=== PATIENT | female | born 1980 | race Asian ===

== ENCOUNTER 2017-06-16 21:13 | Emergency (ER) | payer MEDICAID ==
[~2017-06-16] VITALS: Ht 162.6 cm; Wt 63.0 kg
[2017-06-16 21:21] VITALS: BP 128/84; Ht 162.6 cm; Wt 63.0 kg
== END 2017-06-16 22:13 | disposition home or self-care (01) ==
LOC: ED 21:13
DX: L50.0 Allergic urticaria (principal)

== ENCOUNTER 2017-06-25 15:53 | Emergency (ER) | payer MEDICAID ==
[~2017-06-25] VITALS: Ht 160 cm; Wt 48.5 kg
[2017-06-25 16:20] VITALS: Ht 160 cm; Wt 48.5 kg
[2017-06-25 20:33] VITALS: BP 112/79
== END 2017-06-25 20:33 | disposition home or self-care (01) ==
LOC: ED 15:53
DX: R21 Rash and other nonspecific skin eruption (principal); R35.0 Frequency of micturition
CPT/HCPCS: 82962

== ENCOUNTER 2018-05-23 20:30 | Emergency (ER) | payer OTHER ==
[~2018-05-23] VITALS: Ht 157.5 cm; Wt 52.6 kg
[2018-05-23 20:42] VITALS: Ht 157.5 cm; Wt 52.6 kg
[2018-05-23 23:19] VITALS: BP 131/78
== END 2018-05-23 23:19 | disposition home or self-care (01) ==
LOC: ED 20:30
DX: H66.91 Otitis media, unspecified, right ear (principal); J02.9 Acute pharyngitis, unspecified; G89.29 Other chronic pain; M54.5 Low back pain; Z88.0 Allergy status to penicillin; Z91.041 Radiographic dye allergy status